=== PATIENT | female | born 1995 | race Two or more races ===

== ENCOUNTER 2020-07-27 13:48 | Outpatient (REF) | payer OTHER, SELFPAY ==
[2020-07-27 14:16] LABS: COVID-19 Test Negative (Negative)
== END 2020-07-27 13:49 | disposition home or self-care (01) ==
LOC: HO.EMPCOV 13:48
PROVIDERS: PCP Internal Medicine; Visit Provider Internal Medicine
DX: Z20.828 Contact with and (suspected) exposure to other viral communicable diseases (principal)
CPT/HCPCS: 87635; C9803

== ENCOUNTER 2020-08-14 07:46 | Outpatient (REF) | payer OTHER, SELFPAY ==
[2020-08-14 11:53] LABS: COVID-19 Test Positive (Negative)
== END 2020-08-14 07:47 | disposition home or self-care (01) ==
LOC: HO.EMPCOV 07:46
PROVIDERS: Visit Provider Internal Medicine
DX: Z20.828 Contact with and (suspected) exposure to other viral communicable diseases (principal)
CPT/HCPCS: 87635; C9803